=== PATIENT | male | born 1965 | race Caucasian/White ===

== ENCOUNTER 2021-07-21 06:14 | Emergency (ER) | payer OTHER ==
[~2021-07-21] VITALS: Ht 177.8 cm; Wt 85.8 kg
[2021-07-21 06:24] VITALS: BP 110/73
--- NOTE | 2021-07-21 06:30 | PHYS DOC ---
Adult General Chief Complaint Chief Complaint: EYE PROBLEMS HPI HPI Patient is a 55-year-old male presenting for left eye itching. This was first noticed yesterday without any occupational hazard, trauma, or obvious mechanism of injury. Patient reports his eye was red and started itching with foreign b ori and mendoza sensation, itching makes better, nothing makes worse. Denies any obvious pain, just ongoing foreign body sensation. Timing of symptoms has been constant since onset prompting him to come in for evaluation. Admits he typically wears contacts but did not wear these this morning. Denies any obvious vision changes just blurriness at times from increased clear tearing Review of Systems Review of Systems Fourteen body systems of review of systems have been reviewed. See HPI for pertinent positives and negative responses, other argueta all other systems are negative, non-pertinent or non-contributory Physical Exam Physical Exam Constitutional: Well developed, well nourished, no acute distress, non-toxic appearance. HENT: Normocephalic, atraumatic, bilateral external ears normal, oropharynx moist, no oral exudates, nose normal. Eye exam: The patient was examined with the slit lamp. Extraocular movements are intact Pupils are equally round and reactive to light Visual acuity: 20/100 right, 20/100 left, 20/50 bilateral Eyelids/under eyelids: normal Conjunctivae and sclera: normal Corneas: Slight fluorescein uptake present at 3 o'clock position from pupil, and negative Chintan sign Anterior chambers: normal without cell, flare, or hyphema Neck: Normal range of motion, no tenderness, supple, no stridor. Cardiovascular: Heart rate regular per monitor Lungs & Thorax: No respiratory distress or accessory muscle use, bilateral chest rise Abdomen: Abdomen soft, non-tender, bowel sounds present in all quadrants, no guarding or rebound, nonacute abdomen. Skin: Warm, dry, no erythema, no rash. Back: No tenderness, no CVA tenderness. Extremities: No tenderness, no cyanosis, no clubbing, ROM intact, no edema. Neurologic: Alert and oriented X 3, grossly normal motor & sensory function, no focal deficits noted. Psychologic: Affect normal, judgement normal, mood normal. Current Patient Data Vital Signs Vital Signs Date Time Temp Pulse Resp B/P (MAP) Pulse Ox O2 Delivery O2 Flow Rate FiO2 07/21/21 06:24 98.1 80 18 110/73 (85) 98 Room Air Vital Signs Date Time Temp Pulse Resp B/P (MAP) Pulse Ox O2 Delivery O2 Flow Rate FiO2 07/21/21 06:24 98.1 80 18 110/73 (85) 98 Room Air EKG EKG [] Radiology/Procedures Radiology/Procedures [] Heart Score C/O Chest Pain: No Risk Factors: Risk Factors: DM, Current or recent (<one month) smoker, HTN, HLP, family history of CAD, obesity. Risk Scores: Risk Factors: DM, Current or recent (<one month) smoker, HTN, HLP, family history of CAD, obesity. Course & Med Decision Making Course & Med Decision Making ABCs unremarkable HPI physical exam and comprehensive ER work-up concerning for left eye corneal abrasion in the setting of a patient who wears contacts Joint decision made to start antibiotic eyedrop that covers Pseudomonas coverage, moxifloxacin drops started with subsequent prescription written Close outpatient follow-up with primary care physician and eye doctor recommended to ensure symptomatic resolution. Strict return precautions discussed at length and understood by patient prior to ER departure Jostin Disclaimer Dragon Disclaimer This electronic medical record was generated, in whole or in part, using a voice recognition dictation system. Departure Departure: Impression: Primary Impression: Corneal abrasion, left Disposition: HOME / SELF CARE / HOMELESS Condition: STABLE Referrals: PCP,UNKNOWN (PCP) Patient Instructions: Eye - Corneal Abrasion Additional Instructions: You were seen for eye pain. You most likely have a corneal abrasion and was caused by trauma to the eye. The pain should improve in the next few days. Use over the counter eye drops or any medications prescribed here as directed. Use the drops 2 drops every 2 hours for 2 days THEN q6hrs for 5 days Return to the ED if you develop worsening pain, vision change, fever, or any other new or concerning symptoms. Follow up with an svp business development as needed or if continued symptoms. Scripts Moxifloxacin Hcl (MOXEZA) 3 Ml Drops.visc 1 DROP OS QID for corneal abrasion for 5 Days, #3 ML Prov: GUNNAR GARCIA DO 07/21/21 JOSEGUNNAR DO Jul 21, 2021 06:30
[2021-07-21] MEDS ORDERED: FLUORESCEIN 1MG EYE STRIP. ONE (06:37)
[2021-07-21] MEDS ORDERED: MOXI3DRO OS (06:47)
[2021-07-21] MEDS ORDERED: FLUORESCEIN 1MG EYE STRIP. OS ONE (07:00)
[2021-07-21] MEDS ORDERED: MOXIFLOXACIN 0.5% OPHTH SOLUTION 3ML BOTTLE. OS ONE (07:00)
== END 2021-07-21 07:19 | disposition home or self-care (01) ==
LOC: ER 06:14
DX: S05.02XA Injury of conjunctiva and corneal abrasion without foreign body, left eye, initial encounter (principal); X58.XXXA Exposure to other specified factors, initial encounter; Y93.89 Activity, other specified; Y92.89 Other specified places as the place of occurrence of the external cause; Y99.8 Other external cause status
CPT/HCPCS: 99283